=== PATIENT | male | born 1980 | race Two or more races ===

== ENCOUNTER 2016-10-02 23:41 | Emergency (ER) | payer MEDICAID, OTHER ==
[~2016-10-02] VITALS: Ht 167.6 cm; Wt 72.6 kg
[2016-10-03 00:08] VITALS: BP 155/89
[2016-10-03] MEDS ORDERED: FLUORESCEIN SOD 1 MG TEST STRIP RIGHTEYE ONE (00:45)
[2016-10-03] MEDS ORDERED: TETRACAINE HCL 0.5% OPTH(EYE) SOLN 4ML RIGHTEYE ONE (00:45)
== END 2016-10-03 01:34 | disposition home or self-care (01) ==
LOC: ER 23:41
DX: S05.01XA Injury of conjunctiva and corneal abrasion without foreign body, right eye, initial encounter (principal); X58.XXXA Exposure to other specified factors, initial encounter; Y93.89 Activity, other specified; Y99.8 Other external cause status; Y92.89 Other specified places as the place of occurrence of the external cause